=== PATIENT | female | born 1950 | race Caucasian/White ===

== ENCOUNTER 2024-08-03 06:09 | Day surgery (SDC) | payer MEDICARE ==
[~2024-08-03] VITALS: Ht 152.4 cm; Wt 87.5 kg
[~2024-08-03 06:09] MED LIST: ALBU8.5H INH; ALLO300T2 PO; BISO10TA14 PO; GLIP10TA18 PO; LEXA1TAB PO; METF-838 PO; MUCI600T31 PO; OXYC1TAB23 PO; PRAV40TA2 PO; PULM0.25 INH; SYMB80INH INH
[2024-08-03] MEDS ORDERED: NS (Normal Saline) 0.9% 1,000 ML IV SCH ×2 (06:15→08:30)
[2024-08-03] MEDS ORDERED: LIDOCAINE 2% 100MG/5ML SDV (FOR ANES.) As Ordered ONE (06:51)
[2024-08-03] MEDS ORDERED: ONDANSETRON 4MG 2ML VIAL As Ordered ONE (06:51)
[2024-08-03] MEDS ORDERED: SUGAMMADEX SODIUM 500 MG/5 ML VIAL (BRIDION) As Ordered ONE (06:51)
[2024-08-03] MEDS ORDERED: propofoL 200 MG/20 ML VIAL As Ordered ONE (06:51)
[2024-08-03] MEDS ORDERED: ROCURONIUM BROMIDE 50MG/5ML VIAL As Ordered ONE (06:51)
[2024-08-03] MEDS ORDERED: MIDAZOLAM INJ 2MG/2ML VIAL As Ordered ONE (06:52)
[2024-08-03] MEDS ORDERED: fentaNYL 100 MCG/2 ML INJECTION As Ordered ONE (06:52)
[2024-08-03] MEDS ORDERED: METOCLOPRAMIDE INJ 10MG/2ML VIAL As Ordered ONE (07:01)
[2024-08-03] MEDS: THROMBIN 5,000 UNITS VIAL As Ordered ONE (08:00)
[2024-08-03] MEDS: CETACAINE SPRAY 5GM As Ordered ONE (08:00)
[2024-08-03] MEDS: EPINEPHrine 1MG/10ML SYRINGE 1.5IN As Ordered ONE (08:01)
[2024-08-03] MEDS ORDERED: HYDROCORTISONE 100MG/2ML VIAL As Ordered ONE (08:01)
[2024-08-03] MEDS ORDERED: ALBUTEROL 6.7GM INHALER **FOR ANES. CART/OMNICELL ONLY As Ordered ONE (08:12)
[2024-08-03] MEDS ORDERED: LABETALOL 100MG/20ML VIAL As Ordered ONE (08:23)
[2024-08-03] MEDS ORDERED: ONDANSETRON 4MG 2ML VIAL IV PRN (08:30)
[2024-08-03] MEDS ORDERED: HYDROMORPHONE HCL 0.5 MG/ 0.5 ML SYRINGE IV PRN (08:30)
[2024-08-03] MEDS ORDERED: oxyCODONE 5MG TAB PO PRN (08:30)
[2024-08-03] MEDS ORDERED: fentaNYL 100 MCG/2 ML INJECTION IV PRN (08:30)
[2024-08-03 09:16] VITALS: BP 133/63; TEMP 97.7; O2SAT 98
== END 2024-08-03 09:54 | disposition home or self-care (01) ==
LOC: M SDC 06:09
PROVIDERS: ATTEND Internal Medicine Pulmonary Disease
DX: R91.8 Other nonspecific abnormal finding of lung field (principal); R60.9 Edema, unspecified; Q33.9 Congenital malformation of lung, unspecified; I10 Essential (primary) hypertension; E11.9 Type 2 diabetes mellitus without complications; E78.5 Hyperlipidemia, unspecified; M10.9 Gout, unspecified; F32.A Depression, unspecified; J45.909 Unspecified asthma, uncomplicated; Z79.51 Long term (current) use of inhaled steroids; Z79.84 Long term (current) use of oral hypoglycemic drugs; Z79.899 Other long term (current) drug therapy; Z88.2 Allergy status to sulfonamides; Z88.5 Allergy status to narcotic agent; Z88.8 Allergy status to other drugs, medicaments and biological substances; Z88.1 Allergy status to other antibiotic agents; Z88.0 Allergy status to penicillin
CPT/HCPCS: 31624; 87070; 87077; 87102; 87116; 87184; 87205; 87206; 88108; J1720; J1920; J2250; J2405; J3010